=== PATIENT | male | born 1995 | race Caucasian/White ===

== ENCOUNTER 2019-02-23 18:55 | Emergency (ER) | payer OTHER ==
[2019-02-23] MEDS: DEXAMETHASONE 10 MG/ML 1 ML INJ IV (20:08)
[2019-02-23] MEDS: SOD CHLORIDE 0.9% 500 ML IV (20:08)
[2019-02-23] MEDS: CEFTRIAXONE 1 GM/50 ML (PMX) 50 ML IVPB (20:08)
[2019-02-23] MEDS: KETOROLAC 15 MG INJ IV (20:08)
== END 2019-02-23 21:07 | disposition home or self-care (01) ==
LOC: FTE 18:55
DX: L03.113 Cellulitis of right upper limb (principal)
CPT/HCPCS: 96374; 96375; 99284-25